=== PATIENT | female | born 1985 | race Caucasian/White ===

== ENCOUNTER 2017-03-10 14:13 | Emergency (ER) | payer OTHER ==
[~2017-03-10] VITALS: Ht 188 cm; Wt 63.5 kg
[2017-03-10 14:24] VITALS: BP 125/72
--- NOTE | 2017-03-10 14:49 | RAD ---
Exam performed: 2 views of the chest. Indication: cough, recent pneumonia, chest pain Date of Service:03/10/2017 4:28 PM . Comparison : 2 views chest from 06/21/14 Findings: PA and lateral radiographs of the chest reveal a normal cardiomediastinal contour. The lungs are clear. No pleural fluid is seen. Scoliosis of the thoracic spine with leftward concavity. Impression: No acute cardiopulmonary process seen.
[2017-03-10 15:11] LABS: BASO % 1 % (0-3); EOS # 0.1 x10^3/uL (0.0-0.7); EOS % 2 % (0-3); HEMATOCRIT 38.7 % (36.0-47.0); LYMPH # 1.3 x10^3/uL (1.0-4.8); LYMPH % 20 % (24-48); MEAN CORPUSCULAR HEMOGLOBIN 30 pg (25-35); MEAN CORPUSCULAR HGB CONC 34 g/dL (31-37); MEAN CORPUSCULAR VOLUME 90 fL (79-100); MONO # 0.5 x10^3/uL (0.0-1.1); MONO % 7 % (0-9); NEUT # 4.4 x10^3uL (1.8-7.7); NEUT % 70 % (31-73); PLATELET COUNT 239 x10^3/uL (140-400); RED BLOOD COUNT 4.32 x10^6/uL (3.50-5.40); RED CELL DISTRIBUTION WIDTH 13.2 % (11.5-14.5); WHITE BLOOD COUNT 6.3 x10^3/uL (4.0-11.0)
[2017-03-10 15:18] LABS: CALCIUM 8.7 mg/dL (8.5-10.1); CREATININE 0.9 mg/dL (0.6-1.0); GFR 72.1; POTASSIUM 3.5 mmol/L (3.5-5.1)
--- NOTE | 2017-03-10 15:21 | PHYS DOC ---
General Chief Complaint: LOWER EXT PAIN Stated Complaint: leg swelling Time Seen by MD: 14:26 Source: patient Exam Limitations: no limitations Problems: History of Present Illness Initial Comments Pt is 32/F to ED c/o left leg swelling. Pt states she was diagnosed R sided pneumonia 02/18 was tx abx and saw Dr at [place] 03/08 received clean [facility]. Past two days dry cough, left sided chest wall pain worse with deep breaths, painless left upper leg swelling. Pt is smoker on OCP, discussed with relative who is RN sent to ED to r/o DVT. No trauma/leg pain, no other cp/sob/fever/ chills/palpitations/CAMPBELL/focal neurologic sign. No other complaints. Timing/Duration: other (2 days) Severity: mild Modifying Factors: improves with other Associated Symptoms: chest pain, cough, other Allergies: Coded Allergies: No Known Drug Allergies (Unverified , 03/10/17) Past Medical History Medical History: asthma, other Surgical History: noncontributory Family History Significant Family History: no pertinent family hx Social History Smoker: cigarettes Alcohol: occasionally Drugs: none Review of Systems Constitutional: denies chills, denies fever, denies malaise Respiratory: see HPI Cardiovascular: see HPI Gastrointestinal: denies abdominal pain, denies nausea, denies vomiting Genitourinary: denies dysuria, denies frequency, denies hematuria Musculoskeletal: see HPI Skin: see HPI Psychiatric/Neurological: denies headache, denies numbness, denies paresthesia , denies tingling, denies weakness Hematologic/Lymphatic: denies blood clots, denies easy bleeding, denies easy bruising Physical Exam General Appearance: no apparent distress, thin Eyes: bilateral eye normal inspection, bilateral eye PERRL, bilateral eye EOMI Ear, Nose, Throat: hearing grossly normal, normal ENT inspection, normal pharynx Neck: non-tender, supple Respiratory: normal breath sounds, no respiratory distress Cardiovascular: normal peripheral pulses, regular rate, rhythm Gastrointestinal: non tender, soft Back: no CVA tenderness, no vertebral tenderness Extremities: other (L upper leg swelling no palpable nodule/erythema/visible trauma) Neurologic/Psychiatric: 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 PHYSICIAN: PHILLIP SMITH DO REASON: cough PROCEDURE: CHEST PA & LATERAL Exam performed: 2 views of the chest. Indication: cough, recent pneumonia, chest pain Date of Service:03/10/2017 4:28 PM . Comparison : 2 views chest from 06/21/14 Findings: PA and lateral radiographs of the chest reveal a normal cardiomediastinal contour. The lungs are clear. No pleural fluid is seen. Scoliosis of the thoracic spine with leftward concavity. Impression: No acute cardiopulmonary process seen. DICTATED AND SIGNED BY: GERMANIA CH MD DATE: 03/10/17 1446 CC: BIRD BEAVER DO; PHILLIP SMITH DO ~ PATIENT: AUGUSTIN VAZQUEZ ACCOUNT: [id number] : 1985 LOCATION: ER AGE: 32 SEX: F EXAM STATUS: PRE ER ORD. PHYSICIAN: PHILLIP SMITH DO REASON: leg pain/swelling, OCP, elev d-dimer PROCEDURE: VENOUS LOWER EXTREMITY LEFT Indication left leg swelling. Grayscale color Doppler and spectral imaging was performed. The examination was targeted to the veins of the left lower extremity. The common femoral, femoral and popliteal vessels demonstrate normal flow compressibility and augmentation. No thrombus is seen. The visualized calf veins appeared normal. The right common femoral vein appeared normal IMPRESSION: Negative left lower extremity venous analysis for DVT DICTATED AND SIGNED BY: SCOTT ROSE MD DATE: 03/10/17 1633 CC: BIRD BEAVER DO; PHILLIP SMITH DO ~ PATIENT: AUGUSTIN VAZQUEZ ACCOUNT: [id number] : 1985 LOCATION: ER AGE: 32 SEX: F EXAM STATUS: PRE ER ORD. PHYSICIAN: PHILLIP SMITH DO REASON: L chest discomfort, elev d-dimer, leg swelling PROCEDURE: CT ANGIOGRAPHY CHEST Indication left chest pain. Elevated d-dimer. Axial images of the chest were obtained. Examination was tailored for the detection of pulmonary embolus. MIP images were generated and reviewed. Approximately 75 cc of Omnipaque [address] imaging of the chest is available. Imaging through the upper abdomen is unremarkable. The thoracic aorta appears unremarkable. There is no significant hilar or mediastinal adenopathy. The study is negative for pulmonary embolus. An acute parenchymal infiltrate in either lung is not seen. A dominant soft tissue mass in either lung is not seen. There is a peripheral nodule in the left lower lobe measuring approximately 2 to 3 mm, image 119 series 4. Follow-up imaging along the lines of the Fleischner criteria should be considered. A similar 4 to 5 mm peripheral nodule is seen in the right lower lobe image 113. A smaller 2 mm nodule is seen also in the right lower lobe image 100. Scoliosis is noted. IMPRESSION: No acute finding apparent in the chest. Negative study for pulmonary embolus. Several small pulmonary nodules in the lungs. Follow-up imaging along the lines of the Fleischner criteria should be considered Nodules detected incidentally at non-screening CT Nodule size (mm) less than or equal to 4 Low Risk patients- no follow-up needed High Risk patients- follow-up at 12 months and if no change, no further imaging needed. Nodule size > 4-6 mm Low risk patients- follow- up at 12 months and if no change, no further imaging needed High risk patients- initial follow-up CT at 6-12 months and then at 18-24 months if no change. Nodule Size > 6-8 mm Low risk patients- initial follow-up CT at 6-12 months and then at 18-24 months if no change. High risk patients- initial follow- up CT at 3-6 months and then at 9-12 months if no change, Nodule Size >8 mm Either low or high risk patients: Follow-up CT at around 3, 9 and 24 months Dynamic contrast [address], PET, and/or biopsy Note: newly detected indeterminate nodule in person 35 years of age or older. Low risk patients- minimal or absent history of smoking and/or other known risk factors. High risk patients- history of smoking or of other known risk factors. PQRS Compliance Statement: One or more of the following individualized dose reduction techniques were utilized for this examination: 1. Automated exposure control 2. Adjustment of the mA and/or kV according to patient size 3. Use of iterative reconstruction technique DICTATED AND SIGNED BY: SCOTT ROSE MD DATE: 03/10/17 1650 CC: BIRD BEAVER DO; PHILLIP SMITH DO ~ Departure Time of Disposition: 17:17 Disposition: 01 HOME, SELF-CARE Diagnosis: left leg swelling, elevated d-dimer Condition: GOOD Patient Instructions: D-Dimer Test Additional Instructions: Activity as tolerated. Follow up with your doctor next week for recheck. Return to ED with new or changing symptoms. PHILLIP SMITH DO March 10, 2017 15:21
[2017-03-10] MEDS ORDERED: IOHEXOL 300 MG/ML 75 ML VIAL. IV ONE (16:30)
--- NOTE | 2017-03-10 16:36 | RAD ---
Indication left leg swelling. Grayscale color Doppler and spectral imaging was performed. The examination was targeted to the veins of the left lower extremity. The common femoral, femoral and popliteal vessels demonstrate normal flow compressibility and augmentation. No thrombus is seen. The visualized calf veins appeared normal. The right common femoral vein appeared normal IMPRESSION: Negative left lower extremity venous analysis for DVT
--- NOTE | 2017-03-10 17:04 | RAD ---
Indication left chest pain. Elevated d-dimer. Axial images of the chest were obtained. Examination was tailored for the detection of pulmonary embolus. MIP images were generated and reviewed. Approximately 75 cc of Omnipaque [address] imaging of the chest is available. Imaging through the upper abdomen is unremarkable. The thoracic aorta appears unremarkable. There is no significant hilar or mediastinal adenopathy. The study is negative for pulmonary embolus. An acute parenchymal infiltrate in either lung is not seen. A dominant soft tissue mass in either lung is not seen. There is a peripheral nodule in the left lower lobe measuring approximately 2 to 3 mm, image 119 series 4. Follow-up imaging along the lines of the Fleischner criteria should be considered. A similar 4 to 5 mm peripheral nodule is seen in the right lower lobe image 113. A smaller 2 mm nodule is seen also in the right lower lobe image 100. Scoliosis is noted. IMPRESSION: No acute finding apparent in the chest. Negative study for pulmonary embolus. Several small pulmonary nodules in the lungs. Follow-up imaging along the lines of the Fleischner criteria should be considered Nodules detected incidentally at non-screening CT Nodule size (mm) less than or equal to 4 Low Risk patients- no follow-up needed High Risk patients- follow-up at 12 months and if no change, no further imaging needed. Nodule size > 4-6 mm Low risk patients- follow- up at 12 months and if no change, no further imaging needed High risk patients- initial follow-up CT at 6-12 months and then at 18-24 months if no change. Nodule Size > 6-8 mm Low risk patients- initial follow-up CT at 6-12 months and then at 18-24 months if no change. High risk patients- initial follow- up CT at 3-6 months and then at 9-12 months if no change, Nodule Size >8 mm Either low or high risk patients: Follow-up CT at around 3, 9 and 24 months Dynamic contrast [address], PET, and/or biopsy Note: newly detected indeterminate nodule in person 35 years of age or older. Low risk patients- minimal or absent history of smoking and/or other known risk factors. High risk patients- history of smoking or of other known risk factors. PQRS Compliance Statement: One or more of the following individualized dose reduction techniques were utilized for this examination: 1. Automated exposure control 2. Adjustment of the mA and/or kV according to patient size 3. Use of iterative reconstruction technique
== END 2017-03-10 17:20 | disposition home or self-care (01) ==
LOC: ER 14:13
DX: R22.42 Localized swelling, mass and lump, left lower limb (principal); R79.89 Other specified abnormal findings of blood chemistry; R07.89 Other chest pain; J45.909 Unspecified asthma, uncomplicated; F17.210 Nicotine dependence, cigarettes, uncomplicated
CPT/HCPCS: 36415; 71020; 71275; 80048; 85027; 85379; 93971; 99285; Q9967

== ENCOUNTER 2020-11-27 03:12 | Emergency (ER) | payer OTHER ==
[~2020-11-27] VITALS: Ht 188 cm; Wt 68.9 kg
--- NOTE | 2020-11-27 03:41 | PHYS DOC ---
Past History Past Medical History: Anxiety, Asthma, Pneumonia Past Surgical History: No Surgical History Smoking: Non-smoker Alcohol Use: Rarely Drug Use: None General Adult EDM: Chief Complaint: MULTIPLE COMPLAINTS HPI: HPI: Patient is a [age] year old [sex] who presents with [] Review of Systems: Review of Systems: Constitutional: Denies fever or chills Eyes: Denies redness or eye pain HENT: Denies nasal congestion or sore throat Respiratory: Denies cough or shortness of breath Cardiovascular: Denies chest pain or palpitations GI: Denies abdominal pain, nausea, or vomiting : Denies dysuria or hematuria Musculoskeletal: Denies back pain or joint pain Integument: Denies rash or skin lesions Neurologic: Denies headache, focal weakness or sensory changes Complete systems were reviewed and found to be within normal limits, except as documented in this note. Current Medications: Current Meds: Current Medications Medications (Trade) Dose Ordered Sig/Kathryn Start Time Stop Time Status Last Admin Dose Admin Aspirin (Tarun Aspirin) 325 mg 1X ONCE 11/27/20 04:00 11/27/20 04:01 Famotidine (Pepcid Vial) 20 mg 1X ONCE 11/27/20 04:00 11/27/20 04:01 Sodium Chloride 1,000 ml @ 1,000 mls/hr 1X ONCE 11/27/20 04:00 11/27/20 04:59 Allergies: Allergies: Allergies Coded Allergies Type Severity Reaction Last Updated Verified No Known Drug Allergies 03/10/17 No Physical Exam: PE: Constitutional: Well developed, well nourished, no acute distress, non-toxic appearance HENT: Normocephalic, atraumatic Eyes: PERRL, EOMI, conjunctiva normal, no discharge Neck: Normal range of motion, no tenderness, supple Lungs & Thorax: No respiratory distress, equal chest rise and fall Abdomen: Soft, no tenderness Skin: Warm, dry, no erythema, no rash Back: No tenderness, no CVA tenderness Extremities: No tenderness, ROM intact, no edema Neurologic: Alert and oriented X 3, normal motor function, normal sensory function, no focal deficits noted Psychologic: Affect normal, judgment normal Current Patient Data: Vital Signs: Vital Signs Date Time Temp Pulse Resp B/P (MAP) Pulse Ox O2 Delivery O2 Flow Rate FiO2 11/27/20 03:12 83 16 130/69 (89) 100 EKG: EKG: @0322 NSR at 81bpm, NO ST elevation, RBBB, QRS 110ms, QT/QTc 382/449ms Radiology/Procedures: Radiology/Procedures: [] Heart Score: HEART Score for Chest Pain: HEART Score for Chest Pain Response (Comments) Value History Slighlty/Non-Suspicious 0 ECG Normal 0 Age < 45 0 Risk Factors No Risk Factors 0 Troponin < Normal Limit 0 Total 0 Risk Factors: Risk Factors: DM, Current or recent (<one month) smoker, HTN, HLP, family history of CAD, obesity. Risk Scores: Score 0 - 3: 2.5% MACE over next 6 weeks - Discharge Home Score 4 - 6: 20.3% MACE over next 6 weeks - Admit for Clinical Observation Score 7 - 10: 72.7% MACE over next 6 weeks - Early Invasive Strategies Course & Med Decision Making: Course & Med Decision Making Pertinent Labs and Imaging studies reviewed. (See chart for details) [] Dragon Disclaimer: Dragon Disclaimer: This electronic medical record was generated, in whole or in part, using a voice recognition dictation system. Departure Departure: Impression: Primary Impression: Chest pain Qualified Codes: R07.9 - Chest pain, unspecified Disposition: 01 DC HOME SELF CARE/HOMELESS Condition: STABLE Referrals: BIRD BEAVER DO (PCP) LYNDA HENRIQUEZ MD Patient Instructions: Chest Pain (Nonspecific), [id number] GABRIELLA DAVISON DO Nov 27, 2020 03:41
[2020-11-27 03:59] LABS: BASO % 0 % (0-3); EOS # 0.1 x10^3/uL (0.0-0.7); EOS % 2 % (0-3); HEMATOCRIT 38.3 % (36.0-47.0); HEMOGLOBIN 12.7 g/dL (12.0-15.5); LYMPH # 1.9 x10^3/uL (1.0-4.8); LYMPH % 26 % (24-48); MEAN CORPUSCULAR HEMOGLOBIN 30 pg (25-35); MEAN CORPUSCULAR HGB CONC 33 g/dL (31-37); MEAN CORPUSCULAR VOLUME 90 fL (79-100); MONO # 0.6 x10^3/uL (0.0-1.1); MONO % 9 % (0-9); NEUT # 4.4 x10^3uL (1.8-7.7); NEUT % 63 % (31-73); PLATELET COUNT 196 x10^3/uL (140-400); RED BLOOD COUNT 4.26 x10^6/uL (3.50-5.40); RED CELL DISTRIBUTION WIDTH 13.5 % (11.5-14.5); WHITE BLOOD COUNT 7.1 x10^3/uL (4.0-11.0)
[2020-11-27] MEDS ORDERED: IV NORMAL SALINE 1,000ML 1,000 ML IV ONE (04:00)
[2020-11-27] MEDS ORDERED: ASPIRIN 325 MG TABLET PO ONE (04:00)
[2020-11-27] MEDS ORDERED: FAMOTIDINE 20 MG/2 ML VIAL IVP ONE (04:00)
[2020-11-27 04:04] LABS: ANION GAP 7 (6-14); BLOOD UREA NITROGEN 15 mg/dL (7-20); BUN/CREATININE RATIO 19 (6-20); CALCIUM 8.9 mg/dL (8.5-10.1); CARBON DIOXIDE 30 mmol/L (21-32); CHLORIDE 102 mmol/L (98-107); CREATININE 0.8 mg/dL (0.6-1.0); GFR 81.2; GLUCOSE 115 mg/dL (70-99); POTASSIUM 3.6 mmol/L (3.5-5.1); SODIUM 139 mmol/L (136-145)
--- NOTE | 2020-11-27 04:07 | EKG ---
[address] [address] Test Date: 2020-11-27 Test Time: 03:22:15 Pat Name: AUGUSTIN VAZQUEZ Department: Room: Gender: F [employer] Att[employer]: : 1985 Requested By: GABRIELLA DAVISON Order Number: [id number] Reading MD: Measurements Intervals [place] Rate: 81 P: 54 SD: 200 QRS: 88 QRSD: 110 T: 79 QT: 382 QTc: 449 Interpretive Statements SINUS RHYTHM S1,S2,S3 PATTERN INCOMPLETE RIGHT BUNDLE BRANCH BLOCK CONSIDER RIGHT VENTRICULAR HYPERTROPHY POSSIBLY ABNORMAL ECG RI6.02 No previous ECG available for comparison
[2020-11-27 04:20] LABS: ALBUMIN 3.8 g/dL (3.4-5.0); ALBUMIN/GLOBULIN RATIO 1.2 (1.0-1.7); ALK PHOS 55 U/L (46-116); ALT (SGPT) 17 U/L (14-59); AST (SGOT) 10 U/L (15-37); LIPASE 122 U/L (73-393); TOTAL BILIRUBIN 0.6 mg/dL (0.2-1.0); TOTAL PROTEIN 7.1 g/dL (6.4-8.2)
[2020-11-27 05:19] VITALS: BP 115/68
--- NOTE | 2020-11-27 05:47 | RAD ---
XR CHEST 1V Clinical Indication: Reason: chest pain / Spl. Instructions: / History: Comparison: Two-view chest, March 10, 2017. Findings: The cardiomediastinal silhouette is normal. Lungs are clear. There is no pneumothorax. No pleural eff usion is appreciated. No acute bone abnormality. Old fracture of the left mid clavicle. Incompletely imaged there is mild S-shaped scoliosis of the lower thoracic and lumbar spine. IMPRESSION: No acute cardiopulmonary process. Electronically signed by: Neymar Nunez MD (11/27/2020 5:44 AM) [facility]
[2020-11-27 05:48] LABS: BILIRUBIN,URINE NEG (NEG); CLARITY,URINE CLEAR; COLOR,URINE COLORLESS; GLUCOSE,URINE NEG (NEG)
[2020-11-27 05:49] LABS: BACTERIA,URINE 0 /HPF (0-FEW); NITRITE,URINE NEG (NEG); RBC,URINE 0 /HPF (0-2); SQUAMOUS EPITHELIAL CELL,UR MOD /LPF; UROBILINOGEN,URINE 0.2 mg/dL (0.2 mg/dL); WBC,URINE 0 /HPF (0-4)
--- NOTE | 2020-11-30 10:00 | NUR ---
IP: notified patient of COVID result.
== END 2020-11-27 05:55 | disposition home or self-care (01) ==
LOC: ER 03:12
DX: R07.89 Other chest pain (principal); R06.02 Shortness of breath; F41.9 Anxiety disorder, unspecified; J45.909 Unspecified asthma, uncomplicated; Z20.822 Contact with and (suspected) exposure to COVID-19
CPT/HCPCS: 36415; 71045; 80053; 81001; 82553; 83690; 83735; 83880; 84484; 85025; 85379; 85610; 85730; 93005; 96361; 96374; 99285; C9803; J3490; J7030; U0003